=== PATIENT | female | born 1965 | race Hispanic/Latino ===

== ENCOUNTER 2021-10-14 18:07 | Emergency (ER) | payer SELFPAY ==
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
--- NOTE | 2021-10-14 22:27 | RAD REPORT ---
EXAM DESCRIPTION: Power Single View10/14/2021 7:29 pm CLINICAL HISTORY: Chest pain COMPARISON: 2016 FINDINGS: The lungs appear clear of acute infiltrate. The heart is normal size IMPRESSION: No acute abnormalities displayed
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
[2021-10-15 01:39] VITALS: BP 121/69; TEMP 98.8; O2SAT 99
== END 2021-10-14 22:52 | disposition home or self-care (01) ==
LOC: ER 18:07
DX: R07.9 Chest pain, unspecified (principal); R51.9 Headache, unspecified; V49.40XA Driver injured in collision with unspecified motor vehicles in traffic accident, initial encounter
CPT/HCPCS: 70450; 71045